=== PATIENT | male | born 1960 | race Caucasian/White ===

== ENCOUNTER 2016-11-24 21:52 | Emergency (ER) | payer BC ==
[2016-11-24 23:00] VITALS: BP 137/83
[2016-11-24] MEDS ORDERED: CELECOXIB 200 MG CAPSULE PO ONE (23:40)
--- NOTE | 2016-11-24 23:41 | PHYS DOC ---
General Chief Complaint: LACERATION/AVULSION Stated Complaint: LAC IN MOUTH Time Seen by MD: 22:17 Source: patient Exam Limitations: no limitations Problems: History of Present Illness Initial Comments Pt is 56/M working locally this week from [place], [place] to ED c/o mouth laceration. Earlier today working out at gym pt bounced a medicine ball, it rebounded hitting pt at chin. No PEREZ/LOC/neck pain/n/v/photophobia/dizziness/dazed or other s/s concussion. Pt noticed his mouth bleeding, no loose or painful teeth , pt did have right jaw discomfort. OTC tylenol at home, an acquaintance convinced pt to come for evaluation. No active bleeding, pt can open mouth nearly all the way, refuses CT maxillofacial to r/o jaw fx. Timing/Duration: abrupt, this afternoon Severity: moderate Location: mouth Prearrival Treatment: no prearrival treatment Modifying Factors: worse with coughing, worse with other Associated Symptoms: other Past Medical History Medical History: no pertinent history Surgical History: no surgical history Social History Smoker: non-smoker Alcohol: none Drugs: none Constitutional: denies chills, denies fever Eyes: denies blurred vision, denies decreased acuity, denies foreign body sensation, denies photophobia Ears: denies dizziness, denies pain, denies tinnitus Nose: denies clots, denies congestion, denies epistaxis Mouth: see HPI, denies loose teeth Throat: denies pain, denies swelling, denies neck stiffness Respiratory: denies cough, denies shortness of breath Cardiovascular: denies chest pain, denies palpitations, denies syncope Gastrointestinal: denies abdominal pain, denies nausea, denies vomiting Neurological: see HPI, denies numbness, denies paresthesia, denies weakness Physical Exam General Appearance: WD/WN, no apparent distress, other (NCAT neg benedict/ raccoon eyes no evidence trauma) Eyes: bilateral eye normal inspection, bilateral eye PERRL, bilateral eye EOMI Ears: bilateral ear auricle normal, bilateral ear canal normal, bilateral ear TM normal Nose: normal inspection, other (no ear/nose disch no fluid behind TMs) Mouth/Throat: other (inner aspect lower lip 1.5cm transverse flap type laceration no active bleeding) Neck: supple Cardiovascular/Respiratory: normal peripheral pulses, no respiratory distress Neurologic/Psychiatric: paper machine back tender II-XII nml as tested, no motor/sensory deficits, alert, normal mood/affect, oriented x 3 Skin: normal color, warm/dry Orders, Labs, Meds I discussed indications for oral lac closure. Pt expressed agreement/ understanding with treatment plan. Refuses CT evaluation Departure Time of Disposition: 23:39 Disposition: 01 HOME, SELF-CARE Diagnosis: intraoral laceration Condition: GOOD Patient Instructions: Mouth Laceration, [id number] Additional Instructions: Warm salt water gargles 2-3 times daily. Viscous lidocaine, apply topically as needed for discomfort. Rx: celebrex Follow up with your doctor in 1-2 weeks if not better. Return to ED with new or changing symptoms. JUAN ARTHUR DO November 24, 2016 23:41
[2016-11-24] MEDS ORDERED: CELE100C PO (23:43)
[2016-11-24] MEDS ORDERED: LIDOCAINE 2% VISCOUS 15 ML SOLUTION. SWSW ONE (23:45)
[2016-11-25] MEDS ORDERED: CELECOXIB 100 MG CAPSULE ONE (00:17)
[2016-11-25] MEDS ORDERED: LIDOCAINE 2% VISCOUS 15 ML SOLUTION. ONE (00:18)
== END 2016-11-25 00:20 | disposition home or self-care (01) ==
LOC: ER 21:59
DX: S01.512A Laceration without foreign body of oral cavity, initial encounter (principal); W22.8XXA Striking against or struck by other objects, initial encounter; Y93.89 Activity, other specified; Y92.39 Other specified sports and athletic area as the place of occurrence of the external cause; Y99.8 Other external cause status
CPT/HCPCS: 99283